=== PATIENT | male | born 1950 | race Caucasian/White ===

== ENCOUNTER → 2020-06-01 | Outpatient (CLI) | payer MEDICARE ==
[2020-06-01 09:44] LABS: HCT 47.3 % (39.0-53.0); HGB 16.1 gm/dL (13.0-17.5); MCH 31.8 pg (25.0-35.0); MCV 93.6 fL (80.0-100.0); Mean Platelet Volume 7.8; Platelet Count 230 k/uL (150-450); RBC 5.06 m/uL (4.30-5.90)
[2020-06-01 09:52] LABS: Partial Thromboplastin Time 25.8 sec (22.0-30.0)
[2020-06-01 09:58] LABS: ALT 28 U/L (4-49); AST 26 U/L (17-59); African American GFR (CKD) >90 (>60 ml/min/1.73 sqM); Albumin 4.3 g/dL (3.5-5.0); Alkaline Phosphatase 77 U/L (38-126); Anion Gap 8 mmol/L; Blood Urea Nitrogen 19 mg/dL (9-20); Calcium 9.7 mg/dL (8.4-10.2); Carbon Dioxide 28 mmol/L (22-30); Chloride 101 mmol/L (98-107); Glucose 92 mg/dL (74-99); Non-African American GFR(CKD) 88 (>60 ml/min/1.73 sqM); Potassium 4.4 mmol/L (3.5-5.1); Sodium 137 mmol/L (137-145); Total Bilirubin 0.5 mg/dL (0.2-1.3); Total Protein 6.7 g/dL (6.3-8.2)
[2020-06-01 10:17] LABS: Appearance,Urine Clear (Clear); Bilirubin,Urine Negative (Negative); Blood,Urine Negative (Negative); Color,Urine Yellow; Glucose,Urine (UA) Negative (Negative); Ketones,Urine Negative (Negative); Leukocyte Esterase,Urine Negative (Negative); Nitrite,Urine Negative (Negative); Protein,Urine Negative (Negative); Specific Gravity,Urine 1.014 (1.001-1.035); Urobilinogen,Urine <2.0 mg/dL (<2.0)
== END | disposition home or self-care (01) ==
LOC: LABPAT 08:40
PROVIDERS: ATTEND Orthopaedic Surgery
DX: Z01.818 Encounter for other preprocedural examination (principal); M17.11 Unilateral primary osteoarthritis, right knee; Z01.812 Encounter for preprocedural laboratory examination
CPT/HCPCS: 80053; 81003; 85027; 85610; 85730; 87070

== ENCOUNTER 2020-06-06 06:24 | Day surgery (SDC) | payer MEDICARE ==
[2020-06-01 16:17] VITALS: BMI 32.3
[~2020-06-06 06:24] MED LIST: ACETAMINOPHEN TAB 500 MG TAB PO ONE; DEXAMETHASONE SOD PHOSPHATE 10 MG/ML 1 ML VIAL IV ONE; GABAPENTIN 300 MG CAP PO ONE; HYDROmorphone 0.5 MG/0.5 ML SYRINGE IVP PRN; LIDOCAINE 1% (10MG/ML) FOR IV START INTRADERMA PRN; MELOXICAM 7.5 MG TAB PO ONE; ONDANSETRON 4 MG/2 ML VIAL IVP ONE; ROPIVACAINE 246.25 MG, EPINEPHrine 0.5 MG, KETOROLAC 30 MG, cloNIDine HCL/PF 80 MCG, WA... MISCELLANE ONE; TRANEXAMIC ACID 1,000 MG in SODIUM CHLORIDE 0.9% 100 ML IVPB ONE
[2020-06-06] MEDS ORDERED: bisacodyL 10 MG SUPP RECTAL PRN (06:46)
[2020-06-06] MEDS ORDERED: HYDROmorphone 0.5 MG/0.5 ML SYRINGE IVP PRN ×3 (06:46)
[2020-06-06] MEDS ORDERED: diazePAM 5 MG TAB PO PRN (06:46)
[2020-06-06] MEDS ORDERED: NA PHOS,M-B/NA PHOS,DI-BA 133 ML ENEMA RECTAL PRN (06:46)
[2020-06-06] MEDS ORDERED: NALOXONE 0.4 MG/ML 1 ML VIAL IV PRN (06:46)
[2020-06-06] MEDS ORDERED: MAGNESIUM HYDROXIDE 2,400 MG/10 ML CUP PO PRN (06:46)
[2020-06-06] MEDS ORDERED: HYDROcodone/APAP 5-325MG 1 EACH TAB PO PRN ×2 (06:46)
[2020-06-06] MEDS ORDERED: ONDANSETRON 4 MG/2 ML VIAL IVP PRN (06:46)
[2020-06-06] MEDS ORDERED: hydrOXYzine pamoate 25 MG CAP PO PRN (06:46)
[2020-06-06] MEDS ORDERED: ACETAMINOPHEN TAB 500 MG TAB ONE (06:53)
[2020-06-06] MEDS ORDERED: ONDANSETRON 4 MG/2 ML VIAL ONE (06:53)
[2020-06-06] MEDS: LACTATED RINGERS 1,000 ML IV SCH (07:06)
[2020-06-06] MEDS ORDERED: MIDAZOLAM 2 MG/2 ML VIAL IVP ONE (07:23)
[2020-06-06] MEDS ORDERED: fentaNYL (PF) 50 MCG/ML 2 ML AMP IVP ONE (07:25)
[2020-06-06] MEDS ORDERED: SODIUM CHLORIDE 0.9% 100 ML BAG ONE (08:30)
[2020-06-06] MEDS ORDERED: fentaNYL (PF) 50 MCG/ML 2 ML AMP ONE (08:30)
[2020-06-06] MEDS ORDERED: diphenhydrAMINE 50 MG/ML 1 ML VIAL ONE (08:30)
[2020-06-06] MEDS ORDERED: MIDAZOLAM 2 MG/2 ML VIAL ONE (08:30)
[2020-06-06] MEDS ORDERED: TRANEXAMIC ACID 1,000 MG/10 ML VIAL ONE (08:30)
[2020-06-06] MEDS ORDERED: ROPIVACAINE 0.2%-NS ON-Q PUMP 1,090 MG, EMPTY PAIN BALL 1 EACH MISCELLANE PRN (08:45)
--- NOTE | 2020-06-06 08:47 | P.ANPRN ---
Procedure Note - Anesthesia - Nerve Block Performed Right Adductor Canal Time Out Performed: Yes (:) Date of Procedure: 06/06/20 Procedure Start Time: Procedure Stop Time: : Location of Patient: PreOp Indication: Acute Post-Operative Pain, Requested by Surgeon (DR Savage Handy) Sedation Type: Sedate with meaningful contact maintained Preparation: Sterile Prep, Sterile Dressing Position: Supine Catheter: Indwelling Needle Types: Pajunk Needle Gauge: 21 Ultrasound used to visualize needle placement: Yes Ultrasound used to observe medication spread: Yes Injectate: 0.5% Ropivacaine (see comment for volume) (20cc) Blood Aspirated: No Pain Paresthesia on Injection Noted: No Resistance on Injection: Normal Image Stored and Saved: Yes Events: Uneventful and Well Tolerated
[2020-06-06] MEDS ORDERED: LACTATED RINGERS 1,000 ML IV ONE ×2 (09:00→13:48)
[2020-06-06] MEDS ORDERED: ceFAZolin 3,000 MG in SODIUM CHLORIDE 0.9% IRRIGATIO 3,000 ML IRRIGATION ONE (09:06)
--- NOTE | 2020-06-06 10:12 | P.OP ---
Date of Procedure: 06/06/20 Preoperative Diagnosis: Severe osteoarthritis right knee Postoperative Diagnosis: Severe osteoarthritis right knee Procedure(s) Performed: Right total knee arthroplasty Implants: Rodrí[employer]hew Journey II CR Oxinium cruciate retaining femoral component size 7, right [employer]rí[employer] right nonporous tibial baseplate size 6 [employer]rí[employer] Journey II, XLPE Deep Dished articular insert, size13 mm, Size 5- 6 right [employer]rí[employer] Journey BCS resurfacing oval patellar component, 35 mm All components were cemented using Palacos R bone cement.. The articulation is Oxinium on polyethylene. Anesthesia: spinal Surgeon: Savage Handy Electrical Power Engineer #1: Yimi Ferrera Estimated Blood Loss (ml): 30 Pathology: other (Bone and cartilage) Condition: stable Disposition: PACU Indications for Procedure: After failure of conservative treatment we discussed the surgical and nonsurgical treatment options at length. Patient wishes to proceed with a total knee arthroplasty. Complications specific to this procedure were discussed at length, including but not limited to infection, bleeding, stiffness, and nerve injury. Covid-19 was also discussed at length with the patient, and they are aware of the current policies and procedures. The patient was given the option of delaying surgery, but they elect to proceed knowing these risks. Patient is aware of all these complications and informed consent was obtained Operative Findings: The operative findings are consistent with severe osteoarthritis of the right knee Description of Procedure: Patient was seen in the preoperative area consent was reviewed and operative site was marked with a skin marker. An adductor canal pain catheter was placed by anesthesia in the preoperative area. Patient was then brought to the operating room and given preoperative antibiotics intravenously. A spinal anesthetic was administered by the anesthesia department. A tourniquet was placed on the upper thigh and the lower extremity was prepped and draped in usual sterile fashion. A gram of transexamic acid was given. A universal timeout was then performed which confirmed the patient's name, surgical site, ALLERGIES, and consent. The lower extremity was then exsanguinated and tourniquet was inflated to 250 mmHg. A standard and anterior midline approach to the knee was performed. The skin and subcutaneous tissue was dissected down to the patellar tendon. A medial parapatellar arthrotomy was then performed. The knee was then extended, the patellar was everted, and the knee was again flexed. The patellar fat pad was removed in order to enhance exposure. Anterior horns of both menisci were excised, and a release was performed to the posterior medial aspect of the knee. On gross visual inspection, there was complete loss of articular cartilage in the medial and patellofemoral joint spaces. There was also significant cartilage damage in the lateral compartment. There were multiple periarticular osteophytes which were then removed with a Ronguer. The femoral canal was then opened with the 9.5 mm intramedullary drill. The 8 mm intramedullary anay was then inserted into the femoral canal. The distal femoral cutting guide was then placed and set for 5 of valgus. The distal femoral cutting block was then pinned in place. The intramedullary anay was then removed, and the distal femur was then cut. The cutting block was then removed and the cut was checked for symmetry. Next, the sizing guide was then placed and set for 3 external rotation based off of the epicondylar axis and Whitesides line. Pins were then placed and the drill holes, and the femur was sized with the sizing stylus. The pins were then removed, and the sizing guide was then removed. The spikes of the femoral block was then placed into the predrilled holes, and malleted into place. Two 45 mm pins were then placed into the fixation holes on the cutting block. An tara wing was then used to ensure there would be no notching with the anterior cut. The anterior condyles were cut without notching. The anterior cord cut was then performed, followed by the posterior cut, posterior chamfer cut, and the anterior chamfer cut. The collateral ligaments were protected during the entire process. The cutting block was then removed, and the femoral canal was plugged with autologous bone. Attention was then directed to the tibia. The remaining ACL was removed with a Ronguer, and the tibia was then gently subluxed forward with a large bent knee retractor. Any remaining menisci was excised. The posterior lateral corner was cauterized in order to cauterize the lateral geniculate artery. The extra medullary tibial cutting guide was then placed, set for the appropriate rotation, slope, and depth of resection. The proximal tibia cutting guide was then pinned in place. Proximal tibia was then cut and sized. Next trials were then placed with the appropriate-sized insert. The knee was able to fully extend and flex to 130 and was stable throughout all range of motion. The knee was then extended, patella everted. Patella was then measured, and then using an osteotomy guide, the patella was cut at the appropriate level. The patella was then measured and drilled and the patella trial was then placed. The knee was then taken through range of motion with the patella trial and the patella tracked normally. The knee was then extended patella trial was then removed and the patella was everted. Knee was then flexed and lug holes were drilled through the femoral trial and the femoral trial was then removed. The tibial was then exposed, and the tibial broach guide was then pinned in place after it was set for the appropriate rotation to allow for the most coverage without overhang. The tibia was then reamed and broached. The cut surfaces of bone were then irrigated with pulsatile lavage. The posterior structures were injected with the ropivacaine solution. The knee was also irrigated with Irrisept solution. The components were then opened, the cement was mixed, and the components were then cemented in place. The cement was allowed to harden with the knee in full extension. While the cement was hardening, the remaining soft tissues were then injected with a ropivacaine solution, which consisted of 246.25 mg of ropivacaine, 0.5 mg of epinephrine, 30 mg of Toradol, 80 g of clonidine, and 48.45 mL of sterile water, for a total of 100 mL of fluid injected. After the cemented hardened. The tourniquet was released, and hemostasis was obtained. A second gram of transexamic acid was given. The knee was again irrigated. The knee was again taken through range of motion and found to be stable throughout all range of motion of 0-130, and the patella tracked normally. The fascia was then closed with #2 strata fix suture. The subcutaneous tissue was closed with 3-0 Vicryl and 3-0 strata fix. Dermabond glue was used for the skin and placed with the knee in flexion. The patient was placed in a sterile silver dressing. Patient was then transferred to recovery room in stable condition. The assistant plant control operator MITCHELL Maya was required due the complexity surgery and the need for a skilled surgical assistant certified. She assisted in positioning, draping, retraction, and closure of the wound.
--- NOTE | 2020-06-06 11:11 | XR ---
EXAMINATION TYPE: XR knee limited RT DATE OF EXAM: 06/06/2020 CLINICAL HISTORY: Right knee pain and arthritis status post total knee replacement. TECHNIQUE: Portable AP and crosstable lateral views of the right knee are obtained immediately posto peratively. COMPARISON: None FINDINGS: Metallic hardware from total right knee arthroplasty is seen and appears satisfactory in a lignment and position. There is evidence of recent surgery with diffuse subcutaneous gas and soft ti ssue irregularity. No evidence of unexpected radiopaque foreign body. IMPRESSION: METALLIC HARDWARE FROM TOTAL RIGHT KNEE ARTHROPLASTY IS SATISFACTORY IN ALIGNMENT.
[2020-06-06] MEDS: SODIUM CHLORIDE 0.9% 1,000 ML IV SCH ×2 (14:40→22:46)
--- NOTE | 2020-06-06 15:28 | P.CONS ---
History of Present Illness - Reason for Consult Consult date: 06/06/20 - History of Present Illness The patient is a 69-year-old male with a PMH of hypertension and hyperlipidemia who had been admitted to the hospital for elective right total knee replacement. The patient underwent the procedure uneventfully earlier today and was seen postoperatively on the surgical unit. He reported excellent control of his pain, currently at a 1 out of 10. He had been ambulating in the hallway and in his room and has gone to the restroom and is passing urine. He denied any additional complaints. Denied pain, shortness of breath, fever, chills, nausea, vomiting. He reports compliance with all of his home medications. Review of Systems Pertinent positives and negatives as discussed in HPI, a complete review of systems was performed and all other systems are negative. Past Medical History Past Medical History: Cancer, Hyperlipidemia, Hypertension, Osteoarthritis (OA) Additional Past Medical History / Comment(s): hx prostate cancer 12 yrs. 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 ago, smoked a couple years in the , couple 2-3 beers daily Past Drug Use History: None Reported - Past Family History Father Brother(s) Family Medical History: Cancer Additional Family Medical History / Comment(s): prostate Son(s) Family Medical History: Pulmonary Embolus Medications and Allergies Home Medications Medication Instructions Recorded Confirmed Type Atorvastatin [Lipitor] 40 mg PO DAILY 06/01/20 06/06/20 History Chlorthalidone [Hygroton] 25 mg PO DAILY 06/01/20 06/06/20 History Indomethacin [Indocin] 50 mg PO DAILY 06/01/20 06/06/20 History Lisinopril [Prinivil] 10 mg PO DAILY 06/01/20 06/06/20 History Allergies Allergy/AdvReac Type Severity Reaction Status Date / Time No Known Allergies Allergy Verified 06/06/20 06:38 Physical Exam Vitals: Vital Signs Temp Pulse Pulse Resp BP Pulse Ox 06/06/20 14:05 97.9 F 71 16 144/86 96 06/06/20 13:32 60 16 131/68 96 06/06/20 13:31 68 16 116/63 96 06/06/20 12:31 56 L 18 121/67 96 06/06/20 12:01 59 L 16 124/65 92 L 06/06/20 11:31 62 16 127/60 95 06/06/20 11:16 61 18 122/56 94 L 06/06/20 11:01 59 L 16 114/68 06/06/20 10:42 96.8 F L 66 18 129/60 94 L 06/06/20 07:40 59 L 17 133/75 96 06/06/20 07:07 97.3 F L 62 17 165/80 98 Intake and Output 06/06/20 06/06/20 06/06/20 06:59 14:59 22:59 Intake Total 2050 Output Total 30 Balance 2020 Intake: IV 2050 Output: Estimated Blood Loss 30 Other: Voiding Method Toilet Weight 101.86 kg General: non toxic, no distress, appears at stated age, obese Derm: no unusual rashes/lesions no unusual ecchymoses, warm, dry Head: atraumatic, normocephalic, symmetric Eyes: EOMI, no lid lag, anicteric sclera, pupils equal round reactive to light ENT: Nose and ears atraumatic, no thrush, no pharyngeal erythema Neck: No thyromegaly, no cervical lymphadenopathy, trachea midline, supple Mouth: no lip lesion, mucus membranes moist Cardiovascular: S1S2 reg, no murmur, positive posterior tibial pulse bilateral, no edema, capillary refill less than 2 seconds Lungs: CTA bilateral, no rhonchi, no rales , no accessory muscle use Abdominal: soft, nontender to palpation, no guarding, no appreciable organomegaly, normal bowel sounds Ext: no gross muscle atrophy, muscle strength 5 out of 5 in all extremities except the right lower extremity postoperatively, no contractures, right knee Jose Alberto bandage in place Neuro: CN II-XI grossly intact, light touch intact all 4 extremities, finger to nose within normal limits, Psych: Alert, oriented, appropriate affect Assessment and Plan Plan: Hypertension -Continue with home meds: Lisinopril and chlorthalidone Hyperlipidemia -Continue with home med of Lipitor Status post right total knee replacement -Management including pain control as per orthopedic surgery We appreciate this opportunity to be involved in this patient's care. We will follow the patient with you. For any further questions, please not hesitate to contact the sound inpatient team.
[2020-06-06] MEDS ORDERED: SENNOSIDES-DOCUSATE SODIUM 1 EACH TAB PO SCH (21:00)
[2020-06-06] MEDS: ASPIRIN 325 MG TAB PO SCH (22:46)
[2020-06-07] MEDS: LACTATED RINGERS 1,000 ML IV SCH (04:39)
[2020-06-07 08:11] LABS: Basophils % (A) 0 %; Eosinophils # (A) 0.1 k/uL (0-0.7); Eosinophils % (A) 1 %; HCT 38.7 % (39.0-53.0); Lymphocytes # (A) 1.3 k/uL (1.0-4.8); Lymphocytes % (A) 12 %; MCH 31.6 pg (25.0-35.0); MCHC 33.8 g/dL (31.0-37.0); MCV 93.5 fL (80.0-100.0); Monocytes % (A) 9 %; Neutrophils # (A) 8.6 k/uL (1.3-7.7); Neutrophils % (A) 77 %; Platelet Count 221 k/uL (150-450); RBC 4.14 m/uL (4.30-5.90); RDW 13.2 % (11.5-15.5); WBC 11.1 k/uL (3.8-10.6)
[2020-06-07 08:13] LABS: HGB 13.1 gm/dL (13.0-17.5)
[2020-06-07] MEDS: SODIUM CHLORIDE 0.9% 1,000 ML IV SCH (08:20)
[2020-06-07] MEDS: ASPIRIN 325 MG TAB PO SCH (08:40)
[2020-06-07 08:47] VITALS: BP 132/70; PULSE 62; RESP 18; TEMP 98.7
[2020-06-07] MEDS ORDERED: ATORVASTATIN 40 MG TAB PO SCH (09:00)
[2020-06-07] MEDS ORDERED: CHLORTHALIDONE 25 MG TAB PO SCH (09:00)
[2020-06-07] MEDS ORDERED: MELOXICAM 7.5 MG TAB PO SCH (09:00)
[2020-06-07] MEDS ORDERED: lisinopriL 10 MG TAB PO SCH (09:00)
--- NOTE | 2020-06-07 09:22 | P.PN ---
Progress Note - Text Progress Note Date: 06/07/20 (371) Anesthesiology Postop round 69-year-old male status post right knee arthroplasty with adductor canal catheter. Denies any paresthesias around the lips ringing in the ears. Gross motor strength intact in the right lower extremity. Denies changes in sensorium. No leaking at catheter site. Dressing intact. Answered all questions. Status post right total knee arthroplasty with adductor canal catheter Plan: Maintain catheter
--- NOTE | 2020-06-07 09:42 | P.DS ---
Providers Expected date of discharge: 06/07/20 Attending physician: Savage Handy Consults: 06/06/20 06:46 Consult Physician Routine Consulting Provider: Taty Blandon Consult Reason/Comments: medical management Do you want consulting provider notified?: Yes Primary care physician: Laci Duñeas - Discharge Diagnosis(es) (1) S/P total knee arthroplasty Current Visit: Yes Status: Acute (2) Osteoarthritis of right knee Current Visit: Yes Status: Acute Hospital Course: This is a 69-year-old male with known history of degenerative arthritis of the right knee. The patient presents for evaluation. After discussion and consideration patient elects to proceed with total knee arthroplasty. The patient is seen preoperatively by Dr. Handy and medically cleared for surgery by their primary care physician. Patient is admitted to [facility] on 06/06/2020 for total knee arthroplasty. The procedures performed without complication or sequelae. The patient is doing well postoperatively. Labs and vital signs are stable on day of discharge. On day of discharge patient's knee incision is healing well. There is minimal erythema. There is no drainage noted at this time. There is minimal soft tissue swelling to the knee. Patient has full foot and ankle motion without difficulty or pain. Calf is soft and nontender to palpation. Neurovascular status to the right lower extremity is intact. Patient is discharged home in good condition. Opioid start talking form is reviewed and signed at patient bedside. Please see med rec for accurate list of home medications. Plan - Discharge Summary Discharge Rx Participant: Yes New Discharge Prescriptions: New Aspirin 325 mg PO BID #60 tab HYDROcodone/APAP 5-325MG [Pendleton 5-325] 1 - 2 tab PO Q6HR PRN #48 tab PRN Reason: Pain Sennosides [Senokot] 2 tab PO DAILY PRN #60 tablet PRN Reason: Constipation No Action Atorvastatin [Lipitor] 40 mg PO DAILY Lisinopril [Prinivil] 10 mg PO DAILY Chlorthalidone [Hygroton] 25 mg PO DAILY Indomethacin [Indocin] 50 mg PO DAILY Discharge Medication List Atorvastatin [Lipitor] 40 mg PO DAILY 06/01/20 [History] Chlorthalidone [Hygroton] 25 mg PO DAILY 06/01/20 [History] Indomethacin [Indocin] 50 mg PO DAILY 06/01/20 [History] Lisinopril [Prinivil] 10 mg PO DAILY 06/01/20 [History] Aspirin 325 mg PO BID #60 tab 06/07/20 [Rx] HYDROcodone/APAP 5-325MG [Pendleton 5-325] 1 - 2 tab PO Q6HR PRN #48 tab 06/07/20 [Rx] Sennosides [Senokot] 2 tab PO DAILY PRN #60 tablet 06/07/20 [Rx] Follow up Appointment(s)/Referral(s): Savage Handy DO [Doctor of Osteopathic Medicine] - 2 Weeks Activity/Diet/Wound Care/Special Instructions: Weightbearing as tolerated with a walker. CPM 5-6h daily. Leave dressing intact. May be removed by home care nurse or by patient in 10 days. May shower with dressing on. Recommend use of compression stockings daily until follow up to help prevent swelling and blood clots. May remove at night before sleeping. Please follow up with [facility] and call with any questions or concerns, . Discharge Disposition: HOME WITH HOME HEALTH SERVICES
--- NOTE | 2020-06-07 10:42 | P.PN ---
Subjective Progress Note Date: 06/07/20 Patient is doing well today. He is looking forward to be discharged home today. No acute events overnight. Objective - Vital Signs Vital signs: Vital Signs Temp 98.7 F 06/07/20 07:00 Pulse 62 06/07/20 07:00 Resp 18 06/07/20 08:00 BP 132/70 06/07/20 07:00 Pulse Ox 98 06/07/20 07:00 Intake & Output 06/06/20 06/07/20 06/07/20 18:59 06:59 18:59 Intake Total 2050 Output Total 30 Balance 2020 Weight 101.86 kg Intake: IV 2050 Output: Estimated Blood Loss 30 Other: Voiding Method Toilet Toilet Toilet # Voids 1 1 - Exam General: The patient is awake and alert, in no distress Eye: there is normal conjunctiva bilaterally. Neck: The neck is supple, there is no JVD. Cardiovascular: Normal S1-S2, no S3-S4, no murmurs. Respiratory: Lungs clear to auscultation bilaterally Gastrointestinal: Abdomen is soft, nontendera. Neurological:. Speech is normal. Skin: Skin is warm and dry - Labs CBC & Chem 7: 06/07/20 07:11 Labs: Abnormal Lab Results - Last 24 Hours (Table) 06/07/20 Range/Units 07:11 WBC 11.1 H (3.8-10.6) k/uL RBC 4.14 L (4.30-5.90) m/uL Hct 38.7 L (39.0-53.0) % Neutrophils # 8.6 H (1.3-7.7) k/uL Assessment and Plan Assessment: Hypertension -Continue with home meds: Lisinopril and chlorthalidone Hyperlipidemia -Continue with home med of Lipitor Status post right total knee replacement -Management including pain control and DVT prophylaxis as per orthopedic surgery
== END 2020-06-07 10:41 | disposition home health service (06) ==
LOC: OR 06:24 → 4SSUR 13:45 → OR 06-07 10:41
PROVIDERS: ATTEND Orthopaedic Surgery
DX: M17.11 Unilateral primary osteoarthritis, right knee (principal); I10 Essential (primary) hypertension; E78.5 Hyperlipidemia, unspecified; Z79.899 Other long term (current) drug therapy; Z85.46 Personal history of malignant neoplasm of prostate; Z97.3 Presence of spectacles and contact lenses; Z90.79 Acquired absence of other genital organ(s); Z98.890 Other specified postprocedural states; Z87.891 Personal history of nicotine dependence; Z83.3 Family history of diabetes mellitus
CPT/HCPCS: 97116; 97110; 97161; 64448; 76942; 85025; 73560; 27447; C1713; C1776; J2250; J0171; J1100; J0690 ×3; J2405; J3010; J1885; J2795 ×2; J0735; 88305; 88311